=== PATIENT | female | born 1980 | race Caucasian/White ===

== ENCOUNTER 2016-11-18 21:31 | Emergency (ER) | payer OTHER ==
--- NOTE | 2016-11-18 22:04 | PDOC ---
History of Present Illness - General History Source: Patient Exam Limitations: No Limitations - History of Present Illness Initial Comments: 11/18/16 22:40 The patient is a 36 year old female with a significant past medical history of migraine, and sciatica, presenting to the Emergency Department with a headache since this morning. She reports that the headache is at the front of her forehead, radiating to the back of her head, mostly on the right side. She admits to light sensitivity, and a sensation that she is moving, almost dizzy. She admits to taking 2 extra strength tylenol today, as well as a painkiller that she believes may be Percocet around 5pm, with some relief. She also reports to one episode of vomiting today. She admits to previously experiencing similar symptoms with her migraines, most recently a month and a half ago. The patient denies head trauma, or loss of consciousness. Patient denies double vision. Patient denies numbness, or tingling in her extremities. Patient denies fever, chills, and cough. Patient denies neck pain, or back pain. <Nhi Skinner - Last Filed: 11/18/16 23:56> <Charisse Guadarrama - Last Filed: 11/19/16 20:18> - General Chief Complaint: Migraine Headache Stated Complaint: MIGRAINE Time Seen by Provider: 11/18/16 22:02 Past History <Nhi Skinner - Last Filed: 11/18/16 23:56> - Past Medical History Asthma: No Cancer: No Cardiac Disorders: No Diabetes: No HTN: No Suicide Attempt (Hx): No Seizures: No Thyroid Disease: No - Reproductive History (#): 7 Para: 4 Cervical CA: No Dysfunctional Uterine Bleeding: No Ectopic : No Endometrial CA: No Polycystic Ovaries: No Therapeutic (s) & number: Yes (1) Tubal Ligation: No Spontaneous : 1 - Immunization History Immunization Up to Date: Yes - Psycho/Social/Smoking Cessation Hx Anxiety: No Suicidal Ideation: No Smoking Status: Yes Smoking History: Current some day smoker Have you smoked in the past 12 months: No Number of Cigarettes Smoked Daily: 1 Information on smoking cessation initiated: No Hx Alcohol Use: Yes (occasion) Drug/Substance Use Hx: No Substance Use Type: None Hx Substance Use Treatment: No <Charisse Guadarrama - Last Filed: 11/19/16 20:18> - Past Medical History Allergies/Adverse Reactions: Allergies Allergy/AdvReac Type Severity Reaction Status Date / Time No Known Allergies Allergy Verified 11/18/16 21:35 Home Medications: Ambulatory Orders Acetaminophen [Tylenol -] 500 mg PO Q6H PRN 11/18/16 Oxycodone HCl/Acetaminophen [Percocet 5-325 mg Tablet] 2 tab PO ONCE 11/18/16 Metoclopramide HCl [Reglan -] 10 mg PO TID #21 tablet 11/19/16 Sumatriptan Succinate [Imitrex] 25 mg NR QID PRN #20 tablet 11/19/16 Review of Systems - Review of Systems Able to Perform ROS?: Yes Comments:: 11/18/16 22:41 GENERAL/CONSTITUTIONAL: No fever or chills. No weakness. HEAD, EYES, EARS, NOSE AND THROAT: + light sensitivity. No ear pain or discharge. No sore throat. CARDIOVASCULAR: No chest pain or shortness of breath. RESPIRATORY: No cough, wheezing, or hemoptysis. GASTROINTESTINAL: + nausea, + vomiting. No diarrhea or constipation. GENITOURINARY: No dysuria, frequency, or change in urination. MUSCULOSKELETAL: No joint or muscle swelling or pain. No neck or back pain. SKIN: No rash NEUROLOGIC: + headache, + dizziness. No loss of consciousness, or change in strength. ENDOCRINE: No increased thirst. No abnormal weight change. HEMATOLOGIC/LYMPHATIC: No anemia, easy bleeding, or history of blood clots. ALLERGIC/IMMUNOLOGIC: No hives or skin allergy. <Nhi Skinner - Last Filed: 11/18/16 23:56> *Physical Exam - Vital Signs Last Vital Signs Temp Pulse Resp BP Pulse Ox 98 F 99 H 20 143/90 99 11/18/16 21:38 11/18/16 21:38 11/18/16 21:38 11/18/16 21:38 11/18/16 21:38 <Nhi Skinner - Last Filed: 11/18/16 23:56> - Vital Signs Last Vital Signs Temp Pulse Resp BP Pulse Ox 98 F 99 H 20 143/90 99 11/18/16 21:38 11/18/16 21:38 11/18/16 21:38 11/18/16 21:38 11/18/16 21:38 <Charisse Guadarrama - Last Filed: 11/19/16 20:18> ED Treatment Course - ADDITIONAL ORDERS Additional order review: Laboratory Results 11/18/16 22:22 Urine HCG, Qual Negative - RADIOLOGY Radiology Studies Ordered: 11/18/16 23:56 CT brain As reviewed by Dr. Javier Hinojosa IMPRESSION: Normal brain. No acute intracranial abnormality. No bleed. No visible infarct or mass. - Medications Given in the ED: ED Medications Discontinued Medications Generic Name Dose Route Start Last Admin Trade Name Rowan PRN Reason Stop Dose Admin Diphenhydramine HCl 50 mg 11/18/16 22:30 11/18/16 22:33 Benadryl - PO 11/18/16 22:31 50 mg ONCE ONE Administration Metoclopramide HCl 10 mg 11/18/16 22:29 11/18/16 22:33 Reglan Injection - IM 11/18/16 22:30 10 mg ONCE ONE Administration Oxycodone/Acetaminophen 1 combo 11/18/16 22:30 11/18/16 22:33 Percocet 5/325 - PO 11/18/16 22:31 1 combo ONCE ONE Administration <Nhi Skinner - Last Filed: 11/18/16 23:56> Medical Decision Making - Medical Decision Making 11/18/16 23:54 Patient Name: Delia Calderon THIS IS A PRELIMINARYREPORT FROM [facility] EXAM : CT brain without contrast IMAGES: 74 EXAM DATE AND TIME: 2016-11-18 22:58: 26.0 REASON FOR EXAM: Migraine COMPARISON: None FINDINGS: Normal brain. No acute intracranial abnormality. No bleed. No visible infarct or mass. THIS DOCUMENT HAS BEEN ELECTRONICALLY SIGNED 11/19/16 00:00 Pt understands that she will require follow up with neurologist. She has no specialist for her migraines, though she has been having these headaches for years. She states that today's headache is like her usual headaches. I will provide her with imitrex and reglan for her headaches. I explained to her that she will require neuro follow up and LP to r/o elevated intracranial pressures. Pt is refusing further testing in the ER and she wants to go home with meds. <Charisse Guadarrama - Last Filed: 11/19/16 20:18> *DC/Admit/Observation/Transfer - Attestations Scribe Attestion: 11/18/16 22:43 Documentation prepared by Nhi Skinner, acting as medical billing coder for Charisse Guadarrama MD. <Nhi Skinner - Last Filed: 11/18/16 23:56> - Discharge Dispostion Admit: No <Charisse Guadarrama - Last Filed: 11/19/16 20:18> Diagnosis at time of Disposition: Headache - Discharge Dispostion Disposition: HOME Condition at time of disposition: Stable - Prescriptions Prescriptions: Sumatriptan Succinate [Imitrex] 25 mg NR QID PRN #20 tablet PRN Reason: Headache Metoclopramide HCl [Reglan -] 10 mg PO TID #21 tablet - Referrals Referrals: Barbara Wagoner MD [Primary Care Provider] - - Patient Instructions Printed Discharge Instructions: Migraine Headaches (Alternative Therapy)
[2016-11-18] MEDS ORDERED: METOCLOPRAMIDE HCL INJECTION 10 MG/2 ML VIAL IM ONE (22:29)
[2016-11-18] MEDS ORDERED: OXYCODONE/APAP 5/325MG COMBO TABLET PO ONE (22:30)
[2016-11-18] MEDS ORDERED: diphenhydrAMINE HCL 25 MG CAPSULE (FP) PO ONE ×2 (22:30→22:31)
[2016-11-18] MEDS ORDERED: OXYCODONE/APAP 5/325MG COMBO TABLET ONE (22:30)
[2016-11-18] MEDS ORDERED: METOCLOPRAMIDE HCL 10 MG TABLET (FP) PO ONE (22:31)
[2016-11-18 22:36] VITALS: BMI 28.3
[2016-11-19 00:06] VITALS: BP 132/84; PULSE 83; TEMP 97.3
== END 2016-11-19 00:10 | disposition home or self-care (01) ==
LOC: JER 21:31
PROC: 3E023GC Introduction of Other Therapeutic Substance into Muscle, Percutaneous Approach (ICD-10-PCS; principal; 2016-11-18)
DX: G43.909 Migraine, unspecified, not intractable, without status migrainosus (principal); F17.210 Nicotine dependence, cigarettes, uncomplicated
CPT/HCPCS: 70450-TC; 84703; 96372; 99282-25

== ENCOUNTER 2017-05-19 16:59 | Emergency (ER) | payer OTHER ==
[2017-05-19 17:05] VITALS: BP 141/90; PULSE 103; TEMP 98.4; BMI 32.9
[2017-05-19] MEDS ORDERED: SODIUM CHLORIDE 1,000 ML IV STA (19:32)
[2017-05-19] MEDS ORDERED: METOCLOPRAMIDE HCL INJECTION 10 MG/2 ML VIAL IVPUSH ONE (19:33)
[2017-05-19] MEDS ORDERED: ACETAMINOPHEN 500 MG TABLET (FP) PO ONE (19:40)
--- NOTE | 2017-05-19 19:40 | PDOC ---
Attending Attestation - Resident Resident Name: DamasoRodrigue fan - HPI HPI: 05/20/17 06:58 Pt comes with her usual migraine GARCIA. She doesn't know what sparked it but thinks that it is due to a pork soup that she drank. - Physicial Exam PE: 05/20/17 06:58 Agree with resident. Pt is afebrile. Neuro exam is normal. - Medical Decision Making 05/20/17 06:59 Vastly improved after meds in the ER. Also feeling better with NSS bolus. Pt will be sent home with Imitrex. Labs are normal. Vitals normal. She will folow with her PMD and neurology.
[2017-05-19] MEDS ORDERED: ACETAMINOPHEN 325 MG TABLET (FP) ONE (19:57)
[2017-05-19] MEDS ORDERED: METOCLOPRAMIDE HCL INJECTION 10 MG/2 ML VIAL ONE (19:58)
[2017-05-19 20:03] LABS: BASOPHIL 0.3 % (0-2.0); EOSINOPHIL 0.2 % (0-4.5); MCH 29.6 pg (25.7-33.7); MEAN PLT VOLUME 8.6 fl (7.5-11.1); NEUTROPHILS 79.4 % (42.8-82.8); PLATELET COUNT 337 K/MM3 (134-434); RDW 13.3 % (11.6-15.6); WHITE BLOOD COUNT 7.7 K/mm3 (4.0-10.0)
--- NOTE | 2017-05-19 20:18 | PDOC ---
History of Present Illness - General Chief Complaint: Headache Stated Complaint: MIGRAINE Time Seen by Provider: 05/19/17 19:15 History Source: Patient Exam Limitations: No Limitations - History of Present Illness Initial Comments: 05/19/17 20:13 Patient is a 36F with a history of migraines here today complaining of a headache and vomiting. Her headache started 12 hours ago, worse on the the right side above her right eye radiating along the right side of her head. She reports 4 episodes of non bloody emesis after the headache. After onset, the headache slowly progressed over several hours to the maximum amount of pain a few hours ago. Her headache has improved slightly since then. She tried sumatriptan and endocet at home with no effect. She reports associated light sensitivity, sound sensitivity, and upper abdominal pain that started after multiple episodes of vomiting. She denies fevers, chills, shortness of breath, and chest pain. Past History - Past Medical History Allergies/Adverse Reactions: Allergies Allergy/AdvReac Type Severity Reaction Status Date / Time No Known Allergies Allergy Verified 05/19/17 17:05 Home Medications: Ambulatory Orders Acetaminophen [Tylenol -] 500 mg PO Q6H PRN 11/18/16 Oxycodone HCl/Acetaminophen [Percocet 5-325 mg Tablet] 2 tab PO ONCE 11/18/16 Metoclopramide HCl [Reglan -] 10 mg PO TID #21 tablet 11/19/16 Sumatriptan Succinate [Imitrex] 25 mg NR QID PRN #20 tablet 11/19/16 Sumatriptan Succinate [Imitrex] 25 mg NR QID #30 tablet MDD 8 pills 05/19/17 Asthma: No Cancer: No Cardiac Disorders: No Diabetes: No HTN: No Suicide Attempt (Hx): No Seizures: No Thyroid Disease: No - Reproductive History (#): 7 Para: 4 Cervical CA: No Dysfunctional Uterine Bleeding: No Ectopic : No Endometrial CA: No Polycystic Ovaries: No Therapeutic (s) & number: Yes (1) Tubal Ligation: No Spontaneous : 1 - Immunization History Immunization Up to Date: Yes - Psycho/Social/Smoking Cessation Hx Anxiety: No Suicidal Ideation: No Smoking Status: Yes Smoking History: Current some day smoker Have you smoked in the past 12 months: No Number of Cigarettes Smoked Daily: 1 Information on smoking cessation initiated: No Hx Alcohol Use: Yes (occasion) Drug/Substance Use Hx: No Substance Use Type: None Hx Substance Use Treatment: No Review of Systems - Review of Systems Comments:: 05/19/17 20:18 GENERAL/CONSTITUTIONAL: No fever or chills. No weakness. HEAD, EYES, EARS, NOSE AND THROAT: Positive for light sensitivity. No ear pain or discharge. No sore throat. CARDIOVASCULAR: No chest pain or shortness of breath RESPIRATORY: No cough, wheezing, or hemoptysis. GASTROINTESTINAL: Positive for nausea and vomiting. Negative for diarrhea or constipation. GENITOURINARY: No dysuria, frequency, or change in urination. MUSCULOSKELETAL: No joint or muscle swelling or pain. No neck or back pain. SKIN: No rash NEUROLOGIC: Positive for headache. Negative for: vertigo, loss of consciousness , or change in strength/sensation. ALLERGIC/IMMUNOLOGIC: No hives or skin allergy. *Physical Exam - Vital Signs Last Vital Signs Temp Pulse Resp BP Pulse Ox 98.4 F 103 H 18 141/90 98 05/19/17 17:02 05/19/17 17:02 05/19/17 17:02 05/19/17 17:02 05/19/17 17:02 - Physical Exam Comments: 05/19/17 20:19 GENERAL: Awake, alert, and fully oriented. Covering head with sheet HEAD: No signs of trauma, normocephalic, atraumatic EYES: PERRLA, EOMI, sclera anicteric, conjunctiva clear ENT: Auricles normal inspection, hearing grossly normal, nares patent, oropharynx clear without exudates. Moist mucosa NECK: Normal ROM, supple, no lymphadenopathy, JVD, or masses LUNGS: No distress, speaks full sentences, clear to auscultation bilaterally HEART: Regular rate and rhythm, normal S1 and S2, no murmurs, rubs or gallops, peripheral pulses normal and equal bilaterally. ABDOMEN: Soft, nontender, normoactive bowel sounds. No guarding, no rebound. No masses EXTREMITIES: Normal inspection, Normal range of motion, no edema. No clubbing or cyanosis. NEUROLOGICAL: Cranial nerves II through XII grossly intact. Normal speech, no ataxia, no focal sensorimotor deficits SKIN: Warm, Dry, normal turgor, no rashes or lesions noted. ED Treatment Course - LABORATORY CBC & Chemistry Diagram: 05/19/17 20:00 05/19/17 20:00 - ADDITIONAL ORDERS Additional order review: 05/19/17 20:00 RBC 4.35 MCV 87.0 MCHC 34.0 RDW 13.3 MPV 8.6 Neutrophils % 79.4 D Lymphocytes % 15.2 D Monocytes % 4.9 Eosinophils % 0.2 D Basophils % 0.3 - Medications Given in the ED: ED Medications Discontinued Medications Generic Name Dose Route Start Last Admin Trade Name Rowan PRN Reason Stop Dose Admin Acetaminophen 1,000 mg 05/19/17 19:40 05/19/17 20:08 Tylenol - PO 05/19/17 19:41 1,000 mg ONCE ONE Administration Metoclopramide HCl 10 mg 05/19/17 19:33 05/19/17 20:08 Reglan Injection - IVPUSH 05/19/17 19:34 10 mg ONCE ONE Administration Medical Decision Making - Medical Decision Making 05/19/17 20:21 Patient is a 36F with history of migraines here today with headache and vomiting. Vital signs stable. Neuro exam normal. Last CT done in November which was normal. Will evaluate with urine test, cbc, and cmp. Will give 1L NS, 10 mg reglan and 50 benadryl and reevaluate. 05/19/17 21:23 Patient's headache has resolved. Given return precautions, will discharge with instructions to follow up with PCP Barbara Delgado. Patient verbalized understanding. *DC/Admit/Observation/Transfer Diagnosis at time of Disposition: Migraine Qualifiers: Migraine type: unspecified Status migrainosus presence: without status migrainosus Intractability: not intractable Qualified Code(s): G43.909 - Migraine, unspecified, not intractable, without status migrainosus - Discharge Dispostion Disposition: HOME Condition at time of disposition: Good Admit: No - Prescriptions Prescriptions: Sumatriptan Succinate [Imitrex] 25 mg NR QID #30 tablet MDD 8 pills - Referrals Referrals: Barbara Wagoner MD [Primary Care Provider] - Jimmy Garza DO [Staff Physician] - - Patient Instructions Printed Discharge Instructions: DI for Migraine - Attestations Physician Attestion: 05/19/17 21:26 I, Dr. Rodrigue Khan, attest that this document has been prepared under my direction and personally reviewed by me in its entirety. I further attest, that it accurately reflects all work, treatment, procedures and medical decision -making performed by me.
[2017-05-19 20:31] LABS: ALBUMIN 4.1 g/dl (3.4-5.0); ALK PHOS 95 U/L (45-117); ANION GAP 7 (8-16); BILIRUBIN,TOTAL 0.3 mg/dL (0.2-1.0); CALCIUM 8.9 mg/dL (8.5-10.1); CO2 27 mmol/L (21-32); CREATININE 0.7 mg/dL (0.55-1.02); GLUCOSE,RANDOM 85 mg/dL (74-106); SGOT/AST 11 U/L (15-37); SGPT/ALT 24 U/L (12-78); TOT PROT 7.4 g/dl (6.4-8.2)
== END 2017-05-19 22:00 | disposition home or self-care (01) ==
LOC: JER 16:59 → JERFT 16:59 → JER 22:00
PROC: 3E033GC Introduction of Other Therapeutic Substance into Peripheral Vein, Percutaneous Approach (ICD-10-PCS; principal; 2017-05-19)
DX: G43.909 Migraine, unspecified, not intractable, without status migrainosus (principal); F17.210 Nicotine dependence, cigarettes, uncomplicated
CPT/HCPCS: 36415; 80053; 84703; 85025; 96374; 96375; 99282-25

== ENCOUNTER 2017-10-13 13:40 | Emergency (ER) | payer OTHER ==
[2017-10-13 13:44] VITALS: BP 121/70; PULSE 113; TEMP 99.3; BMI 34.7
--- NOTE | 2017-10-13 14:27 | PDOC ---
History of Present Illness - General Chief Complaint: Cold Symptoms Stated Complaint: FEVER Time Seen by Provider: 10/13/17 13:56 History Source: Patient Exam Limitations: No Limitations - History of Present Illness Initial Comments: 10/13/17 14:22 Patient is a 37-year-old female, no significant medical history currently on no medication reports on day started to feel ill, generalized body aches went to her primary care doctor was diagnosed with viral illness yesterday patient developed fever Tmax 103.5 since fever has resolved. Concerned because her tonsils looked red. Currently afebrile, ambulatory, still with cough and cold- like symptoms cough and runny nose. Past Medical History: [Denies]. Allergies: No known allergies Medications: [None] Family History: Non-contributory Social History: Denies smoking, alcohol use, or IVDU Vital signs on arrival are [notable for pulse of 113.] Review of Systems GENERAL/CONSTITUTIONAL: [Fever and chills No weakness. No weight change.] HEAD, EYES, EARS, NOSE AND THROAT: [No change in vision. No ear pain or discharge. Sore throat. ] CARDIOVASCULAR: [No chest pain or shortness of breath.] RESPIRATORY: [Nonproductive cough, wheezing, or hemoptysis.] GASTROINTESTINAL: [No nausea, vomiting, diarrhea or constipation. No rectal bleeding.] GENITOURINARY: [No dysuria, frequency, or change in urination.] MUSCULOSKELETAL: [No joint or muscle swelling or pain. No neck or back pain.] SKIN AND BREASTS: [No rash or easy bruising.] NEUROLOGIC: [No headache, vertigo, loss of consciousness, or loss of sensation.] PSYCHIATRIC: [No depression or anxiety.] ENDOCRINE: [No increased thirst. No abnormal weight change.] HEMATOLOGIC/LYMPHATIC: [No anemia, easy bleeding, or history of blood clots.] ALLERGIC/IMMUNOLOGIC: [No hives or skin allergy. No latex allergy.] Physical Exam: GENERAL: [The patient is awake, alert, and fully oriented, in no acute distress. ] HEAD: [Normal with no signs of trauma.] EYES: [Pupils equal, round and reactive to light, extraocular movements intact, sclera anicteric, conjunctiva clear.] ENT: [Ears normal, nares patent, oropharynx clear without exudates. Moist mucous membranes. No uvula deviation] NECK: [Normal range of motion, supple without lymphadenopathy, JVD, or masses.] LUNGS: [Breath sounds equal, clear to auscultation bilaterally. No wheezes, and no crackles.] HEART: [Regular rate and rhythm, normal S1 and S2 without murmur, rub or gallop. ] ABDOMEN: [Soft, nontender, normoactive bowel sounds. No guarding, no rebound. No masses. No bruising or abrasions] RECTAL : [Guaiac negative, normal rectal tone.] MUSCULOSKELETAL: [Normal range of motion, no edema. No clubbing or cyanosis. No cords, erythema, or tenderness. No CVA Tenderness with fist.] NEUROLOGICAL: [Cranial nerves II through XII grossly intact. Normal speech, normal gait.] SKIN: [Warm, Dry, normal turgor, no rashes or lesions noted.] 10/13/17 14:25 Past History - Past Medical History Allergies/Adverse Reactions: Allergies Allergy/AdvReac Type Severity Reaction Status Date / Time No Known Allergies Allergy Verified 10/13/17 13:44 Home Medications: Ambulatory Orders Oseltamivir Phosphate [Tamiflu -] 75 mg PO BID #10 capsule 10/13/17 Asthma: No Cancer: No Cardiac Disorders: No CVA: No COPD: No DVT: No Diabetes: No HTN: No Seizures: No Thyroid Disease: No - Reproductive History (#): 7 Para: 4 Cervical CA: No Dysfunctional Uterine Bleeding: No Ectopic : No Endometrial CA: No Polycystic Ovaries: No Therapeutic (s) & number: Yes (1) Tubal Ligation: No Spontaneous : 1 - Immunization History Immunization Up to Date: Yes - Suicide/Smoking/Psychosocial Hx Smoking Status: Yes Smoking History: Never smoked Have you smoked in the past 12 months: No Number of Cigarettes Smoked Daily: 1 Hx Alcohol Use: Yes (SOCIAL) Drug/Substance Use Hx: No Substance Use Type: None Hx Substance Use Treatment: No *Physical Exam - Vital Signs Last Vital Signs Temp Pulse Resp BP Pulse Ox 99.3 F 113 H 20 121/70 97 10/13/17 13:42 10/13/17 13:42 10/13/17 13:42 10/13/17 13:42 10/13/17 13:42 Medical Decision Making - Medical Decision Making 10/13/17 14:26 A/P: Patient here for evaluation of fever, cough and cold-like symptoms, sore throat Rapid strep and rapid influenza sent 10/13/17 16:26 Patient is influenza A positive, strep negative we'll DC patient on Tamiflu follow-up with PMD as needed. Increase fluids, medicate for fever as needed. I discussed the physical exam findings, ancillary test results and final diagnoses with the patient. I answered all of the patient's questions. The patient was satisfied with the care received and felt comfortable with the discharge plan and treatment plan. The patient will call to arrange follow-up and will return to the Emergency Department with any new, persistent or worsening symptoms. *DC/Admit/Observation/Transfer Diagnosis at time of Disposition: Influenza A - Discharge Dispostion Disposition: HOME Condition at time of disposition: Good Admit: No - Prescriptions Prescriptions: Oseltamivir Phosphate [Tamiflu -] 75 mg PO BID #10 capsule - Referrals Referrals: Barbara Wagoner MD [Primary Care Provider] - - Patient Instructions Printed Discharge Instructions: Influenza (Alternative Therapy) Additional Instructions: You have been diagnosed with influenza a. Please take the medication as directed. You are contagious. Please attempt to avoid contact of multiple individuals as this will cause the infection to spread. Return to emergency room if shortness of breath, wheezing, fever greater than 101 uncontrolled , chest pain, or fainting occurs. - Post Discharge Activity Forms/Work/School Notes: Back to Work
== END 2017-10-13 16:04 | disposition home or self-care (01) ==
LOC: JERFT 13:40
DX: J09.X2 Influenza due to identified novel influenza A virus with other respiratory manifestations (principal)
CPT/HCPCS: 87070; 87430; 87804; 99281-25